=== PATIENT | female | born 1980 | race Caucasian/White ===

== ENCOUNTER 2017-11-13 15:31 | Inpatient (IN) | payer BC ==
[~2017-11-13] VITALS: Ht 157.5 cm; Wt 88.3 kg
[~2017-11-13 15:31] MED LIST: CEPHALEXIN500 M1 PO; LEVOTHYROXINE PO; LORTAB 5/500 501 TAB PO; MOTRIN 600600 MG/TAB PO; PERCOCET 325 MG1 TA2 PO; PRENATAL1 TA1 PO; ZITHROMAX Z PA250 MG PO
[2017-11-13 20:51] VITALS: BP 110/67; PULSE 96; TEMP 98.6
[2017-11-13] MEDS ORDERED: CALCIUM CARBON650 M2 (21:01)
[2017-11-14] VITALS (54 sets, daily range): BP systolic 91–118; BP diastolic 51–73; PULSE 62–96; TEMP 98.4–98.5
[2017-11-14 08:18] LABS: BASO % 0.4 % (0.0-2.0); EOS # 0.3 (0.0-0.7); GRAN # 5.9 (1.4-6.5); GRAN % 65.7 % (42.2-75.2); HEMATOCRIT 36.4 % (37.0-47.0); HEMOGLOBIN 12.7 g/dl (12.5-16.0); LYMPH # 2.1 (1.2-3.4); LYMPH % 22.8 % (20.0-51.0); MEAN CELL VOLUME 97 fl (80.0-100.0); MEAN CORPUSCULAR HEMOGLOBIN 34 pg (27.0-31.0); MEAN CORPUSCULAR HGB CONC 35 g/dl (33.0-37.0); MEAN PLATELET VOLUME 9.4 fl (7.4-10.4); MONO # 0.6 (0.1-0.6); PLATELET COUNT 260 K/mm3 (130-400); RED BLOOD COUNT 3.75 M/mm3 (4.10-5.30); REDCELL DISTRIBUTION WIDTH-CV 12.5 % (11.5-14.5)
[2017-11-15 02:05] VITALS: BP 101/47; PULSE 71; TEMP 97.6
[2017-11-15 05:15] VITALS: BP 102/50; PULSE 58; TEMP 97.6
[2017-11-15 07:11] LABS: HEMOGLOBIN 11.9 g/dl (12.5-16.0)
[2017-11-15 07:22] LABS: HEMATOCRIT 34.7 % (37.0-47.0)
[2017-11-15 08:36] VITALS: BP 120/57; PULSE 79; TEMP 98
[2017-11-15] MEDS ORDERED: IBU600 MG PO (08:59)
[2017-11-15] MEDS ORDERED: PERCOCET 325 MG1 TA2 PO (08:59)
[2017-11-15 14:55] VITALS: BP 115/70; PULSE 67; TEMP 98.7
[2017-11-15 20:00] VITALS: BP 102/62; PULSE 66; TEMP 97.4
[2017-11-16 10:19] VITALS: BP 110/64; PULSE 62; TEMP 97.8
== END 2017-11-16 11:20 | disposition home or self-care (01) | DRG 807 ==
LOC: LDR → OB 11-14 07:05 → LDR 11-14 07:05 → OB 11-14 22:51
PROVIDERS: Obstetrics & Gynecology
PROC: 10E0XZZ Delivery of Products of Conception, External Approach (ICD-10-PCS; principal; 2017-11-14)
PROC: 10907ZC Drainage of Amniotic Fluid, Therapeutic from Products of Conception, Via Natural or Artificial Opening (ICD-10-PCS; 2017-11-14)
PROC: 3E033VJ Introduction of Other Hormone into Peripheral Vein, Percutaneous Approach (ICD-10-PCS; 2017-11-14)
DX: O34.211 Maternal care for low transverse scar from previous cesarean delivery (principal); Z37.0 Single live birth; Z3A.39 39 weeks gestation of pregnancy; O99.284 Endocrine, nutritional and metabolic diseases complicating childbirth; E03.9 Hypothyroidism, unspecified
CPT/HCPCS: J2405; J2590; J7120

== ENCOUNTER 2017-11-13 20:40 | Outpatient (CLI) | payer MEDICAID ==
[~2017-11-13] VITALS: Ht 157.5 cm; Wt 88.2 kg
[2017-11-13 21:00] VITALS: BP 116/78; PULSE 99; TEMP 97.9
[2017-11-13] MEDS ORDERED: CALCIUM CARBON650 M2 (21:01)
[2017-11-13 21:30] VITALS: BP 118/78; PULSE 91
[2017-11-13 22:00] VITALS: BP 126/56; PULSE 93
[2017-11-13 22:40] VITALS: BP 110/66; PULSE 81
== END 2017-11-13 22:55 ==
LOC: LDRO 20:40
DX: O62.9 Abnormality of forces of labor, unspecified (principal); Z3A.39 39 weeks gestation of pregnancy; Z98.890 Other specified postprocedural states

== ENCOUNTER 2018-01-23 05:29 | Inpatient (IN) | payer BC ==
[~2018-01-23] VITALS: Ht 162.6 cm; Wt 78.4 kg
[2018-01-23] VITALS (10 sets, daily range): BP systolic 97–114; BP diastolic 56–69; PULSE 62–74; TEMP 97.4–98.7
[~2018-01-23 05:29] MED LIST changes: +CALCIUM CARBON650 M2; +IBU600 MG PO
[2018-01-23] MEDS ORDERED: SYNTHROID0.1 MG/TAB PO (06:02)
[2018-01-23] MEDS ORDERED: OSCAL 500 TAB500 MG PO (06:07)
[2018-01-23] MEDS ORDERED: PRENATA1 CTB PO (06:07)
[2018-01-24] VITALS: BP 114/66; PULSE 67; TEMP 97.4
[2018-01-24 05:00] VITALS: BP 93/57; PULSE 60; TEMP 98.2
[2018-01-24] MEDS ORDERED: PERCOCET 325 MG1 TA2 PO (07:32)
[2018-01-24] MEDS ORDERED: MOTRIN 600600 MG/TAB PO (07:32)
[2018-01-24 08:00] VITALS: BP 101/50; PULSE 51; TEMP 97.7
== END 2018-01-24 13:01 | disposition home or self-care (01) | DRG 743 ==
LOC: SDCO 05:29 → OB 09:10
PROVIDERS: Obstetrics & Gynecology
PROC: 0UT9FZZ Resection of Uterus, Via Natural or Artificial Opening With Percutaneous Endoscopic Assistance (ICD-10-PCS; principal; 2018-01-23 07:30)
PROC: 0UT7FZZ Resection of Bilateral Fallopian Tubes, Via Natural or Artificial Opening With Percutaneous Endoscopic Assistance (ICD-10-PCS; 2018-01-23 07:30)
DX: N94.6 Dysmenorrhea, unspecified (principal); E03.9 Hypothyroidism, unspecified; Z87.891 Personal history of nicotine dependence
CPT/HCPCS: A4314; J0690; J1170; J1885; J2175; J2270; J2405; J2704; J2710; J3010; J7120